=== PATIENT | male | born 1990 | race Caucasian/White ===

== ENCOUNTER 2016-09-30 08:31 | Observation (INO) | payer SELFPAY ==
[~2016-09-30] VITALS: Ht 177.8 cm; Wt 79.4 kg
[2016-09-30] MEDS ORDERED: CONTRAST GIVEN MC PRN (09:15)
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
[2016-09-30] MEDS ORDERED: DIPHTH,PERTUSS(ACELL),TET TOX 0.5 ML DISP.SYRIN. VAX IM ONE (09:45)
[2016-09-30] MEDS ORDERED: IOHEXOL 300 MG/ML 75 ML VIAL IV ONE (09:45)
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
[2016-09-30] MEDS ORDERED: fentaNYL PF VIAL 100 MCG/2 ML VIAL ONE (10:15)
[2016-09-30] MEDS: fentaNYL PF VIAL 100 MCG/2 ML VIAL IV PRN ×4 (10:17→23:04)
[2016-09-30] MEDS ORDERED: ONDANSETRON PF 4 MG/2 ML VIAL. IV ONE (10:45)
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
[2016-09-30 15:00] LABS: BASO # 0.1 x10^3/uL (0.0-0.2); BASO % 1 % (0-3); EOS % 0 % (0-3); HEMATOCRIT 41.8 % (39.0-53.0); LYMPH % 7 % (24-48); MEAN CORPUSCULAR HEMOGLOBIN 31 pg (25-35); MEAN CORPUSCULAR HGB CONC 34 g/dL (31-37); MEAN CORPUSCULAR VOLUME 93 fL (79-100); MONO % 7 % (0-9); NEUT % 85 % (31-73); PLATELET COUNT 237 x10^3/uL (140-400); RED BLOOD COUNT 4.48 x10^6/uL (4.30-5.70); RED CELL DISTRIBUTION WIDTH 12.6 % (11.5-14.5); WHITE BLOOD COUNT 14.5 x10^3/uL (4.0-11.0)
[2016-09-30 15:01] LABS: CALCIUM 8.6 mg/dL (8.5-10.1); CREATININE 1.4 mg/dL (0.7-1.3); GFR 60.3; POTASSIUM 3.4 mmol/L (3.5-5.1)
[2016-09-30 15:02] LABS: BARBITURATES NEG (NEG); BENZODIAZEPINES NEG (NEG); CANNABINOIDS NEG (NEG); COCAINE POS (NEG); METHADONE NEG (NEG); OPIATES POS (NEG); PHENCYCLIDINE NEG (NEG)
[2016-09-30 15:08] LABS: ALBUMIN 4.1 g/dL (3.4-5.0); ALBUMIN/GLOBULIN RATIO 1.2 (1.0-1.7); TOTAL BILIRUBIN 0.5 mg/dL (0.2-1.0); TOTAL PROTEIN 7.6 g/dL (6.4-8.2)
[2016-09-30] MEDS ORDERED: ONDANSETRON PF 4 MG/2 ML VIAL. IV PRN (15:30)
[2016-09-30 15:53] LABS: % BASOS 1 % (0-3); % EOS 1 % (0-5); PLT ESTIMATE ADEQUATE (ADEQUATE)
[2016-09-30 17:20] VITALS: BP 118/78
[2016-09-30 19:00] VITALS: BP 114/78
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
[2016-09-30] MEDS: NICOTINE 21MG PATCH. TD SCH (23:04)
[2016-09-30 23:08] VITALS: BP 116/67
[2016-10-01] MEDS: fentaNYL PF VIAL 100 MCG/2 ML VIAL IV PRN ×3 (01:12→06:00)
[2016-10-01] MEDS: oxyCODONE/APAP 10/325 1 TAB TABLET PO PRN ×4 (01:12→15:33)
[2016-10-01 03:00] VITALS: BP 109/62
[2016-10-01 07:00] VITALS: BP 103/64
[2016-10-01] MEDS: NICOTINE 21MG PATCH. TD SCH (10:15)
[2016-10-01] MEDS ORDERED: IBUP-1027 PO (10:37)
[2016-10-01] MEDS ORDERED: OXYC1TAB9 PO (10:37)
[2016-10-01 11:00] VITALS: BP 117/72
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
== END 2016-10-01 15:50 | disposition home or self-care (01) ==
LOC: ER 08:31 → 4 NORTH 15:00
PROVIDERS: ADMIT Internal Medicine Hematology & Oncology; ATTEND Internal Medicine Hematology & Oncology
DX: S42.001A Fracture of unspecified part of right clavicle, initial encounter for closed fracture (principal); F17.210 Nicotine dependence, cigarettes, uncomplicated; F14.929 Cocaine use, unspecified with intoxication, unspecified; F11.90 Opioid use, unspecified, uncomplicated; F15.99 Other stimulant use, unspecified with unspecified stimulant-induced disorder; S06.0X9A Concussion with loss of consciousness of unspecified duration, initial encounter; Z91.83 Wandering in diseases classified elsewhere; V29.88XA Motorcycle rider (driver) (passenger) injured in other specified transport accidents, initial encounter; Y93.89 Activity, other specified; Y92.410 Unspecified street and highway as the place of occurrence of the external cause; Y99.8 Other external cause status
CPT/HCPCS: 36415; 70450; 71010; 71260; 72125; 80053; 80307; 82962; 85007; 85027; 90471; 90715; 96374; 96375; 96376; G0378; G0480; J2405; J3010; Q9967; G0379; G0479